=== PATIENT | female | born 1995 | race Caucasian/White ===

== ENCOUNTER 2017-10-31 00:25 | Emergency (ER) | payer SELFPAY ==
[2017-10-31] MEDS ORDERED: RANITIDINE HCL 150 MG TABLET (FP) PO ONE (00:26)
[2017-10-31] MEDS ORDERED: ONDANSETRON *ODT* 4 MG TABLET SL ONE (00:26)
--- NOTE | 2017-10-31 00:32 | PDOC ---
History of Present Illness - General Chief Complaint: Pain, Acute Stated Complaint: ABDOMINAL PAIN Time Seen by Provider: 10/31/17 00:26 History Source: Patient Exam Limitations: No Limitations - History of Present Illness Initial Comments: 10/31/17 00:32 This is a 22-year-old female who has a long history of intermittent abdominal pain. Patient is had multiple workups including CAT scans and MRIs and ultrasounds and consult with a GI specialist within the last several months. Patient said that nobody is ever Love found a cause for her abdominal pain. Patient said this last episode has been intermittent over the last about 3 months but seemed to be worse tonight so she came in for evaluation. She is complaining of some mild nausea and generalized abdominal pain. She denies any fever, chills, diarrhea or constipation. PAST MEDICAL HISTORY: no significant history PAST SURGICAL HISTORY: no significant history FAMILY HISTORY: no pertinant history SOCIAL HISTORY: Pt lives with family and is employed. MEDICATIONS: reviewed ALLERGIES: As per nursing notes Review of Systems General: No fevers or chills, no weakness, no weight loss HEENT: No change in vision. No sore throat,. No ear pain CardioVascular: No chest pain or shortness of breath Respiratory:No cough, or wheezing. Gastrointestinal: + nausea, no vomitting, diarrhea or constipation, No rectal bleeding Genitourinary: No dysuria, hematuria, or frequency Musculoskeletal: No joint or muscle pain or swelling Neurologic: No headache, vertigo, dizziness or loss of consciousness Psychiatric: nor depression Skin: No rashes or easy bruising Endocrine: no increased thirst or abnormal weight change Allergic: no skin or latex allergy All other systems reviewed and normal Exam: General: Well-nourished well-developed individual, no acute distress HEENT: Throat: Normal, tonsils normal, no erythema or exudate Neck: Supple, no meningeal signs, no lymphadenopathy Eyes::Pupils equal reactive and round, extraocular motion intact Chest: Nontender to palpation Cardiac: S1-S2 normal, regular rate and rhythm, no murmurs rubs or gallops Respiratory: Lungs clear to auscultation bilateral Abdomen: Soft, nondistended, normal bowel sounds, nontender to palpation diffusely Extremities: Warm, dry, no cyanosis, clubbing, or edema Skin: No rashes Neuro: Alert and oriented x3, CN II - XII intact, nonfocal exam with normal strength, normal sensation, normal reflexes, normal gait, Psych: Normal mood and affect Assessment and plan: This is a 22-year-old female with months of intermittent abdominal pain for which she has had multiple negative workups. Patient came in today for abdominal pain however her exam is normal she has no tenderness. She has no fever and normal vitals. Patient was given hyoscyamine, Zantac and Zofran as she did complain of a small amount of nausea. Patient's symptoms improved. Discussed with patient that since she has had multiple negative workups that this could be type II stress in her life and how she deals with stress encouraged her to continue to follow up with her medical doctors but also consider seeing a therapist to help her deal with stress. Past History - Past Medical History Allergies/Adverse Reactions: Allergies Allergy/AdvReac Type Severity Reaction Status Date / Time No Known Allergies Allergy Verified 10/31/17 00:26 Home Medications: Ambulatory Orders Omeprazole 20 mg PO DAILY #14 tablet. 10/31/17 *DC/Admit/Observation/Transfer Diagnosis at time of Disposition: Abdominal pain - Discharge Dispostion Disposition: HOME Condition at time of disposition: Stable - Referrals - Patient Instructions Additional Instructions: Return to the emergency department immediately with ANY new, persistent or worsening symptoms. Continue any medications as previously prescribed by your physician. You should follow up with your primary doctor as soon as possible regarding today's emergency department visit. . Please make sure your doctor reviews the results of your emergency evaluation. Thank you for coming to the Emergency Department today for your care. It was a pleasure to see you today. Please note that your evaluation is INCOMPLETE until you follow-up with your doctor. - Post Discharge Activity
[2017-10-31 00:39] VITALS: BP 119/83; PULSE 90; TEMP 98.4; BMI 20.1
== END 2017-10-31 00:53 | disposition home or self-care (01) ==
LOC: FER 00:25
DX: R10.9 Unspecified abdominal pain (principal)
CPT/HCPCS: 99281-25